=== PATIENT | male | born 1940 | race Caucasian/White ===

== ENCOUNTER → 2019-11-08 11:09 | Outpatient (BNVA) | payer MEDICARE, SELFPAY | PROVIDERS: Family Provider Family Medicine; Visit Provider Internal Medicine Rheumatology | DX: R76.8 Other specified abnormal immunological findings in serum (principal); Z11.59 Encounter for screening for other viral diseases; Z79.899 Other long term (current) drug therapy; Z11.1 Encounter for screening for respiratory tuberculosis; M32.9 Systemic lupus erythematosus, unspecified; M35.3 Polymyalgia rheumatica; N18.9 Chronic kidney disease, unspecified; M10.9 Gout, unspecified | CPT/HCPCS: 36415; 80076; 81001; 82085; 82306; 82550; 82565; 82570; 84156; 84439; 84443; 84550; 85025; 85651; 86140; 86160; 86480; 86704; 86803; 87340; 99204 ==

== ENCOUNTER → 2019-12-27 08:32 | Outpatient (BNVA) | payer MEDICARE, SELFPAY | PROVIDERS: Family Provider Family Medicine; Visit Provider Internal Medicine Rheumatology | DX: M54.31 Sciatica, right side (principal); M54.32 Sciatica, left side; N18.9 Chronic kidney disease, unspecified; M15.9 Polyosteoarthritis, unspecified; M47.816 Spondylosis without myelopathy or radiculopathy, lumbar region | CPT/HCPCS: 99213 ==

== ENCOUNTER 2019-12-27 09:57 | Outpatient (CLI) | payer MEDICARE, SELFPAY ==
--- NOTE | 2019-12-27 10:30 | XR_ITS ---
WS: [id number] PELVIS: AP VIEW SUBMITTED HISTORY: low back pain COMPARISON: None available. Diffuse osteopenia. Mild narrowing of the SI joints and hip joints. No fractures or dislocation. No s ubluxation. Mild enthesopathy at the iliac crest. Facet joint arthritis at L5-S1. Plate and screw fus ion across the symphysis pubis. Extensive vascular calcifications. XR/XR pelvis 1-2V* [id number] IMPRESSION: 1. Degenerative changes of osteoarthritis. 2. No fracture or subluxations. 3. Peripheral arterial vascular calcifications.
--- NOTE | 2019-12-27 10:30 | XR_ITS ---
WS: [id number] LUMBAR SPINE: 3 VIEWS TECHNIQUE: AP, lateral and L5-S1 spot. HISTORY: low back pain COMPARISON: None available. Increase in the lumbar lordosis. L4 anterolisthesis by 9 mm. Mild increase in the osteopenia. Facet j oint arthritis is moderate at L4-5 and L5-S1. Disc spaces are mildly narrowed. No fracture. SI joints are symmetric bilaterally. No soft tissue abnormalities. Severe atherosclerosis aorta and common iliac arteries. XR/XR lumbar spine 2-3V* [id number] IMPRESSION: 1. Grade 1 spondylolisthesis of L4. 2. Osteopenia. 3. 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
== END 2019-12-27 09:58 | disposition home or self-care (01) ==
LOC: RADWPI 10:04
PROVIDERS: Family Provider Family Medicine; PCP Family Medicine; Visit Provider Internal Medicine Rheumatology
DX: M54.5 Low back pain (principal); M19.90 Unspecified osteoarthritis, unspecified site; M43.16 Spondylolisthesis, lumbar region; I70.0 Atherosclerosis of aorta; I70.8 Atherosclerosis of other arteries; M54.31 Sciatica, right side; M54.32 Sciatica, left side; N18.9 Chronic kidney disease, unspecified; M15.9 Polyosteoarthritis, unspecified; M47.816 Spondylosis without myelopathy or radiculopathy, lumbar region
CPT/HCPCS: 72100; 72170; 99213

== ENCOUNTER 2020-01-22 13:45 | Outpatient (CLI) | payer MEDICARE, SELFPAY ==
--- NOTE | 2020-01-22 14:15 | XR_ITS ---
WS: [id number] DEXA (DUAL ENERGY X-RAY ABSORPTIOMETRY) Bone mineral density was performed using a [employer] machine. HISTORY: screening for osteoporosis COMPARISON: None available. Lumbar spine BMD (L1-L4): 1.366 g/cm2 T score: 1.2 Z score: 1.8 Total hip BMD: Left: 0.872 g/cm2. T score: -1.6 Z score: -0.4 Right: 0.834 g/cm2. T score: -1.9 Z score: -0.7 10 year probability of a major osteoporotic fracture is 18%. XR/XR DEXA axial skeleton* [id number] IMPRESSION: OSTEOPENIA based upon the WHO classification for females.
== END 2020-01-22 13:46 | disposition home or self-care (01) ==
LOC: RADWPI 13:52
PROVIDERS: PCP Family Medicine; Visit Provider Internal Medicine Rheumatology
DX: Z13.820 Encounter for screening for osteoporosis (principal); M85.89 Other specified disorders of bone density and structure, multiple sites
CPT/HCPCS: 77080

== ENCOUNTER → 2020-01-28 15:08 | Outpatient (BNVA) | payer MEDICARE, SELFPAY | PROVIDERS: Family Provider Family Medicine; PCP Family Medicine; Visit Provider Internal Medicine Rheumatology | DX: M47.816 Spondylosis without myelopathy or radiculopathy, lumbar region (principal); I73.9 Peripheral vascular disease, unspecified; M54.31 Sciatica, right side; M54.32 Sciatica, left side; N18.9 Chronic kidney disease, unspecified; M15.9 Polyosteoarthritis, unspecified | CPT/HCPCS: 99214 ==

== ENCOUNTER 2023-08-05 07:28 | Outpatient (CLI) | payer MEDICARE, SELFPAY ==
--- NOTE | 2023-08-05 07:39 | FL_ITS ---
WS: [id number] Exam: FL barium swallow [id number] Date/Time of Exam: 08/05/2023 8:15 AM Reason For Exam: DIFFICULTY SWALLOWING LIQUIDS Fluoroscopy time: Minutes # of spot films: 5 Oral pharyngeal phase of swallowing is normal. There was no indication of esophageal mass or strictur e. Esophageal motility was normal. The esophagus is not displaced. No hiatal hernia or gastroesophage al reflux observed. Mild esophageal spasm noted. IMPRESSION: 1. Mild esophageal spasm involving the mid and lower esophagus. 2. No indication of esophageal mass, stricture or significant motility disorder.
== END 2023-08-05 07:29 | disposition home or self-care (01) ==
LOC: RAD 07:33
PROVIDERS: Family Provider Family Medicine; PCP Registered Nurse; Visit Provider Registered Nurse
DX: R13.10 Dysphagia, unspecified (principal)
CPT/HCPCS: 74220

== ENCOUNTER 2024-07-17 05:00 | Outpatient (RCR) | payer MEDICARE, SELFPAY | END 2024-08-15 23:59 | disposition home or self-care (01) | LOC: WPT 05:00 | PROVIDERS: Visit Provider Internal Medicine | DX: Z47.89 Encounter for other orthopedic aftercare (principal) | CPT/HCPCS: 97110; 97112; 97530 ==

== ENCOUNTER 2024-08-16 05:00 | Outpatient (RCR) | payer MEDICARE, SELFPAY | END 2024-09-15 23:59 | disposition home or self-care (01) | LOC: WPT 05:00 | PROVIDERS: Visit Provider Internal Medicine | DX: Z47.89 Encounter for other orthopedic aftercare (principal) | CPT/HCPCS: 97110; 97112; 97140; 97530 ==

== ENCOUNTER 2024-09-16 05:00 | Outpatient (RCR) | payer MEDICARE, SELFPAY | END 2024-10-15 23:59 | disposition home or self-care (01) | LOC: WPT 05:00 | PROVIDERS: Visit Provider Internal Medicine | DX: Z47.89 Encounter for other orthopedic aftercare (principal) | CPT/HCPCS: 97110; 97112; 97530 ==

== ENCOUNTER 2024-10-16 06:30 | Outpatient (RCR) | payer MEDICARE, SELFPAY | END 2024-10-30 13:55 | disposition home or self-care (01) | LOC: WPT 06:30 | PROVIDERS: Visit Provider Internal Medicine | DX: S72.321D Displaced transverse fracture of shaft of right femur, subsequent encounter for closed fracture with routine healing (principal); X58.XXXD Exposure to other specified factors, subsequent encounter | CPT/HCPCS: 97110; 97112; 97530 ==